=== PATIENT | female | born 1940 | race Caucasian/White ===

== ENCOUNTER 2021-12-17 10:19 | Day surgery (SDC) | payer OTHER ==
[~2021-12-17] VITALS: Ht 152.4 cm; Wt 71.4 kg
[~2021-12-17 10:19] MED LIST: ASPI81EC PO; HYDACE5 PO; VITAMIN B122500 MCG PO
[2021-12-17] MEDS ORDERED: Amlodipine Bes2.5 MG PO (10:59)
== END 2021-12-17 12:36 | disposition home or self-care (01) ==
LOC: ORSCSDS 10:19
PROVIDERS: Internal Medicine Gastroenterology
PROC: 0DBN8ZX Excision of Sigmoid Colon, Via Natural or Artificial Opening Endoscopic, Diagnostic (ICD-10-PCS; principal; 2021-12-17 11:30)
PROC: 0DBL8ZX Excision of Transverse Colon, Via Natural or Artificial Opening Endoscopic, Diagnostic (ICD-10-PCS; principal; 2021-12-17 11:30)
PROC: 0DBH8ZX Excision of Cecum, Via Natural or Artificial Opening Endoscopic, Diagnostic (ICD-10-PCS; principal; 2021-12-17 11:30)
DX: Z12.11 Encounter for screening for malignant neoplasm of colon (principal); D12.3 Benign neoplasm of transverse colon; D12.0 Benign neoplasm of cecum; K63.5 Polyp of colon; K64.4 Residual hemorrhoidal skin tags; I10 Essential (primary) hypertension; Z79.899 Other long term (current) drug therapy
CPT/HCPCS: 88305; J2704; J7120